=== PATIENT | male | born 1965 | race American Indian/Alaskan Native ===

== ENCOUNTER 2020-05-30 13:23 | Observation (INO) | payer MEDICAID, MEDICARE ==
--- NOTE | 2020-05-30 16:31 | Event Note ---
ED Screening Note Date of service: 05/30/20 Time: 16:27 ED Screening Note: 54-year-old male with end-stage renal disease on dialysis every day with recent diagnosis of atrial fibrillation recently prescribed mediation for A fib. Patient presents with dizziness for the past couple of days with fatigue and loss of appetite. Past medical history: Afib, ESRD, hypertension This initial assessment/diagnostic orders/clinical plan/treatment(s) is/are subject to change based on patients health status, clinical progression and re- assessment by fellow clinical providers in the ED. Further treatment and workup at subsequent clinical providers discretion. Patient/guardian urged not to elope from the ED as their condition may be serious if not clinically assessed and managed. Initial orders include: Labs, EKG,
--- NOTE | 2020-05-30 17:18 | XRay Report ---
CHEST 2 VIEWS INDICATION / CLINICAL INFORMATION: sob. COMPARISON: None available. FINDINGS: SUPPORT DEVICES: None. HEART / MEDIASTINUM: No significant abnormality. LUNGS / PLEURA: No significant pulmonary or pleural abnormality. No pneumothorax. ADDITIONAL FINDINGS: No significant additional findings. IMPRESSION: 1. No acute findings. Signer Name: Fausto Weathers MD Signed: 05/30/2020 5:14 PM Workstation Name: [id number]
[2020-05-30 18:28] LABS: Basophils # (Auto) 0.1 K/mm3 (0.0-0.1); Basophils % (Auto) 1.5 % (0.0-1.8); Eosinophils % (Auto) 0.8 % (0.0-4.3); Hemoglobin 9.5 gm/dl (11.8-15.2); Lymphocytes # (Auto) 1.3 K/mm3 (1.2-5.4); Lymphocytes % (Auto) 27.1 % (13.4-35.0); Mean Corpuscular HGB Conc 33 % (32-34); Mean Corpuscular Volume 103 fl (84-94); Monocytes # (Auto) 0.4 K/mm3 (0.0-0.8); Monocytes % (Auto) 8.1 % (0.0-7.3); Platelet Count 220 K/mm3 (140-440); Red Blood Count 2.82 M/mm3 (3.65-5.03)
[2020-05-30 18:43] LABS: Albumin 2.9 g/dL (3.9-5); Calcium 7.8 mg/dL (8.4-10.2)
[2020-05-30 18:54] LABS: Chol/HDL Ratio 1.73 %; HDL Cholesterol 78 mg/dL (40-59)
[2020-05-30 19:11] LABS: LDL Cholesterol,Direct TNR mg/dL (50-130)
[2020-05-30 19:39] LABS: Bilirubin,Urine NEG (Negative); Blood,Urine SM (Negative); Color,Urine Straw (Yellow); Urobilinogen,Urine < 2.0 mg/dL (<2.0)
--- NOTE | 2020-05-30 20:40 | Emergency Department Report ---
ED Dizziness HPI - General Chief Complaint: Dizziness Stated Complaint: DIZZY Time Seen by Provider: 05/30/20 18:13 Source: patient Mode of arrival: Ambulatory Limitations: No Limitations - History of Present Illness Initial Comments: Patient is a 54-year-old male that presents emergency room with complaints of dizziness. Patient states that this is been going on for 3 days. Patient states his dizziness is worse with standing and better with sitting and rest. Patient states that when he lies flat or states his symptoms completely resolved. Patient states that he is on dialysis. Patient states he does peritoneal dialysis daily. Patient states his last dialysis was yesterday. Patient states that after dialysis his dizziness is a little bit more prominent. Patient denies chest pain or shortness of breath. Patient denies fever and chills. Patient denies syncope. Patient denies dizziness. Patient denies visual changes. Patient only complains of lightheadedness and dizziness while going from the sitting to the standing position. Patient states 1 week ago he was seen at another hospital and had problems with new onset atrial flutter. Patient denies recent travel. Patient denies recent international travel. Patient denies exposure to the novel coronavirus. Patient denies sick contacts. Patient denies fever and chills. Patient denies cough. Patient denies diarrhea. Patient denies coming in contact with anybody with symptoms of the novel coronavirus. MD Complaint: dizziness -: Sudden Timing: sudden onset Description: lightheadedness History of Same: No History of Trauma: No Severity: moderate Improves With: rest Worsens With: position Associated Symptoms: denies: ataxia, chest pain, confusion, cough, diaphoresis, fever/chills, loss of appetite, malaise, rash, seizure, shortness of breath, syncope, weakness - Related Data Allergies Allergy/AdvReac Type Severity Reaction Status Date / Time No Known Allergies Allergy Verified 05/30/20 16:30 ED Review of Systems ROS: Stated complaint: DIZZY Other details as noted in HPI Comment: All other systems reviewed and negative Constitutional: denies: chills, fever Eyes: denies: eye pain, eye discharge, vision change ENT: denies: ear pain, throat pain Respiratory: denies: cough, shortness of breath, wheezing Cardiovascular: denies: chest pain, palpitations Endocrine: no symptoms reported Gastrointestinal: denies: abdominal pain, nausea, diarrhea Genitourinary: denies: urgency, dysuria Musculoskeletal: denies: back pain, joint swelling, arthralgia Skin: denies: rash, lesions Neurological: as per HPI. denies: headache, weakness, paresthesias Psychiatric: denies: anxiety, depression Hematological/Lymphatic: denies: easy bleeding, easy bruising ED Past Medical Hx - Past Medical History Previous Medical History?: Yes Hx Hypertension: Yes Hx Renal Disease: Yes (peritoneal dialysis) - Surgical History Past Surgical History?: No - Family History Family history: no significant - Social History Smoking Status: Never Smoker Substance Use Type: None ED Physical Exam - General Limitations: No Limitations General appearance: alert, in no apparent distress - Head Head exam: Present: atraumatic, normocephalic - Eye Eye exam: Present: normal appearance, PERRL Pupils: Present: normal accommodation - ENT ENT exam: Present: mucous membranes moist - Neck Neck exam: Present: normal inspection - Respiratory Respiratory exam: Present: normal lung sounds bilaterally. Absent: respiratory distress, wheezes, rales - Cardiovascular Cardiovascular Exam: Present: regular rate, normal rhythm. Absent: systolic murmur, diastolic murmur, rubs, gallop - GI/Abdominal GI/Abdominal exam: Present: soft, normal bowel sounds. Absent: distended, tenderness, guarding - Rectal Rectal exam: Present: deferred - Extremities Exam Extremities exam: Present: normal inspection - Back Exam Back exam: Present: normal inspection - Neurological Exam Neurological exam: Present: alert, oriented X3 - Psychiatric Psychiatric exam: Present: normal affect, normal mood - Skin Skin exam: Present: warm, dry, intact, normal color. Absent: rash ED Course Vital Signs 05/30/20 05/30/20 05/30/20 14:26 17:24 17:30 Temperature 98.7 F Pulse Rate 85 Respiratory 18 Rate Blood Pressure 176/99 Blood Pressure [Left] O2 Sat by Pulse 98 100 99 Oximetry 05/30/20 05/30/20 05/30/20 17:46 18:00 18:27 Temperature Pulse Rate 70 83 Respiratory 18 18 Rate Blood Pressure Blood Pressure 168/82 [Left] O2 Sat by Pulse 99 100 98 Oximetry 05/30/20 05/30/20 05/30/20 19:30 20:15 20:30 Temperature 98.9 F Pulse Rate 102 H 93 H 86 Respiratory 24 15 18 Rate Blood Pressure 159/96 159/96 Blood Pressure 153/91 [Left] O2 Sat by Pulse 100 97 99 Oximetry 05/30/20 05/30/20 05/30/20 21:15 21:30 22:00 Temperature Pulse Rate 92 H 89 72 Respiratory 15 15 13 Rate Blood Pressure 142/87 136/83 164/94 Blood Pressure [Left] O2 Sat by Pulse 96 98 96 Oximetry 05/30/20 05/30/20 05/30/20 22:15 22:30 23:30 Temperature Pulse Rate 91 H 91 H 91 H Respiratory 21 17 16 Rate Blood Pressure 159/98 136/83 151/94 Blood Pressure [Left] O2 Sat by Pulse 98 100 98 Oximetry 05/30/20 05/30/20 05/31/20 23:45 23:46 00:00 Temperature Pulse Rate 94 H 94 H 90 Respiratory 13 11 L 21 Rate Blood Pressure 147/88 147/88 147/89 Blood Pressure [Left] O2 Sat by Pulse 96 99 95 Oximetry 05/31/20 05/31/20 05/31/20 00:15 00:30 00:45 Temperature Pulse Rate 94 H 115 H 88 Respiratory 13 17 16 Rate Blood Pressure 146/93 146/93 154/96 Blood Pressure [Left] O2 Sat by Pulse 95 98 97 Oximetry - Reevaluation(s) Reevaluation #1: I discussed all results with patient. I discussed plan of care with patient. Patient agrees with plan of care and admission. Patient to be admitted to the hospitalist service. 05/30/20 22:30 - Consultations Consultation #1: Hospitalist consulted for admission. Hospitalist to admit patient. 05/30/20 22:35 ED Medical Decision Making - Lab Data Result diagrams: 05/30/20 18:01 05/30/20 18:01 - EKG Data -: EKG Interpreted by Me EKG shows normal: sinus rhythm, axis, intervals, QRS complexes, ST-T waves Rate: normal - Radiology Data Radiology results: report reviewed, image reviewed interpreted by me: Chest x-ray: No acute findings, no fracture, no pneumonia, no pneumothorax, lung evans clear. CHEST 2 VIEWS INDICATION / CLINICAL INFORMATION: sob. COMPARISON: None available. FINDINGS: SUPPORT DEVICES: None. HEART / MEDIASTINUM: No significant abnormality. LUNGS / PLEURA: No significant pulmonary or pleural abnormality. No pneumothorax. ADDITIONAL FINDINGS: No significant additional findings. IMPRESSION: 1. No acute findings. CT head/brain wo con INDICATION: Dizziness. TECHNIQUE: Routine CT head without contrast. All CT scans at this location are performed using CT dose reduction for ALARA by means of automated exposure control. COMPARISON: None. FINDINGS: BRAIN / INTRACRANIAL CONTENTS: No acute hemorrhage, mass effect, midline shift, or hydrocephalus. No appreciable acute large territorial or lacunar infarct. Small chronic lacunar infarct in the right lateral thalamus. ORBITS: No significant abnormality of visualized orbits. SINUSES / MASTOIDS: No significant abnormality of visualized sinuses and mastoid air cells. ADDITIONAL FINDINGS: None. IMPRESSION: 1. No acute intracranial abnormality - Medical Decision Making Patient is a 54-year-old male that presents emergency room with worsening dizziness. Patient's labs were all consistent with end-stage renal disease however I assessed the patient had elevated troponin and considered secondary to kidney disease but the patient's troponin stayed the same and actually went up a point. Patient admitted to the hospital service for further evaluation and treatment. Patient chest x-ray was negative. Patient head CT was negative. - Differential Diagnosis Dizziness, ACS, electrolyte imbalance, dehydration, Critical Care Time: Yes Critical care time in (mins) excluding proc time.: 35 Critical care attestation.: If time is entered above; I have spent that time in minutes in the direct care of this critically ill patient, excluding procedure time. Critical Care Time: 35 minutes ED Disposition Clinical Impression: Dizziness, ESRD (end stage renal disease), Elevated troponin Disposition: OP ADMIT IP TO THIS HOSP Is pt being admited?: Yes Does the pt Need Aspirin: No Condition: Critical Time of Disposition: 22:21
--- NOTE | 2020-05-30 21:57 | Cat Scan Report ---
CT head/brain wo con INDICATION: Dizziness. TECHNIQUE: Routine CT head without contrast. All CT scans at this location are performed using CT dos e reduction for ALARA by means of automated exposure control. COMPARISON: None. FINDINGS: BRAIN / INTRACRANIAL CONTENTS: No acute hemorrhage, mass effect, midline shift, or hydrocephalus. No appreciable acute large territorial or lacunar infarct. Small chronic lacunar infarct in the right la teral thalamus. ORBITS: No significant abnormality of visualized orbits. SINUSES / MASTOIDS: No significant abnormality of visualized sinuses and mastoid air cells. ADDITIONAL FINDINGS: None. IMPRESSION: 1. No acute intracranial abnormality. Signer Name: Zachary Segura MD Signed: 05/30/2020 9:53 PM Workstation Name: [id number]
[2020-05-30] MEDS ORDERED: NITROGLYCERIN 0.4 MG TAB SUBL SL PRN (23:55)
[2020-05-30] MEDS ORDERED: ONDANSETRON 4 MG/2 ML INJ IV PRN (23:55)
[2020-05-30] MEDS ORDERED: hydrALAZINE 20 MG/1 ML INJ IV PRN (23:55)
[2020-05-30] MEDS ORDERED: MAGNESIUM HYDROXIDE (MOM) ORAL LIQD UDC PO PRN (23:55)
[2020-05-30] MEDS ORDERED: MORPHINE 2 MG/1 ML INJ IV PRN (23:55)
--- NOTE | 2020-05-31 00:17 | History and Physical Report ---
History of Present Illness Date of examination: 05/30/20 Date of admission: 05/30/20 23:20 Chief complaint: Dizziness History of present illness: Patient is a 54-year-old male with known history of hypertension and end-stage renal disease on peritoneal dialysis. Presents to the emergency room today with a complaint of dizziness which has been ongoing for the past 3 days. Dizziness is said to be worse on standing and improves upon sitting and resting. Dizzines s is said to be worse after having his dialysis. Patient is on peritoneal dialysis daily. He denies any chest pain or shortness of breath, he denies any fever or chills, he denies any syncopal episode, he denies any headache. Patient denies any recent travel and no sick contacts, denies any contact with anyone with COVID-19. Patient also indicates that he was seen at a hospital in [facility] for atrial flutter. He states he was placed on observation overnight. Work-up in the emergency room today shows a slightly elevated troponin however the EKG and chest x-ray were within normal limits. Past History Past Medical History: ESRD, hypertension Past Surgical History: Other (Peritoneal catheter placement) Social history: no significant social history Family history: no significant family history Medications and Allergies Allergies Allergy/AdvReac Type Severity Reaction Status Date / Time No Known Allergies Allergy Verified 05/30/20 16:30 Active Meds: Active Medications Acetaminophen (Tylenol) 650 mg PO Q4H PRN PRN Reason: Pain MILD(1-3)/Fever >100.5/GARCIA Aspirin (Ecotrin) 325 mg PO QDAY GISELLE Heparin Sodium (Porcine) (Heparin) 5,000 unit SUB-Q Q8HR GISELLE Hydralazine HCl (Apresoline) 10 mg IV Q6HR PRN PRN Reason: FOR SBP > target Magnesium Hydroxide (Milk Of Magnesia) 30 ml PO Q4H PRN PRN Reason: Constipation Morphine Sulfate (Morphine) 2 mg IV Q4H PRN PRN Reason: Pain, Moderate (4-6) Nitroglycerin (Nitrostat) 0.4 mg SL Q5M PRN PRN Reason: Chest Pain Ondansetron HCl (Zofran) 4 mg IV Q8H PRN PRN Reason: Nausea And Vomiting Sodium Chloride (Sodium Chloride Flush Syringe 10 Ml) 10 ml IV BID GISELLE Sodium Chloride (Sodium Chloride Flush Syringe 10 Ml) 10 ml IV PRN PRN PRN Reason: LINE FLUSH Sodium Chloride (Sodium Chloride Flush Syringe 10 Ml) 10 ml IV PRN PRN PRN Reason: LINE FLUSH Review of Systems Constitutional: no fever, no chills Ears, nose, mouth and throat: no nasal congestion, no sore throat Cardiovascular: no chest pain, no palpitations Respiratory: no cough, no shortness of breath Gastrointestinal: no abdominal pain, no nausea, no vomiting, no diarrhea Genitourinary Male: no dysuria, no hematuria, no flank pain Musculoskeletal: no neck pain, no low back pain Integumentary: no rash, no pruritis Neurological: other (Dizziness), no headaches, no confusion Psychiatric: no anxiety, no depression Exam - Constitutional Vitals: Temp Pulse Resp BP Pulse Ox 98.9 F 94 H 13 147/88 96 05/30/20 19:30 05/30/20 23:45 05/30/20 23:45 05/30/20 23:45 05/30/20 23:45 General appearance: Present: no acute distress, well-nourished - EENT Eyes: Present: PERRL, EOM intact. Absent: scleral icterus ENT: hearing intact, clear oral mucosa, dentition normal - Neck Neck: Present: supple, normal ROM - Respiratory Respiratory effort: normal Respiratory: bilateral: CTA - Cardiovascular Rhythm: regular Heart Sounds: Present: S1 & S2. Absent: gallop, systolic murmur, diastolic murmur, rub - Extremities Extremities: no ischemia, pulses intact, pulses symmetrical, No edema, Full ROM Peripheral Pulses: within normal limits - Abdominal General gastrointestinal: Present: soft, non-tender, non-distended, normal bowel sounds, other (peritoneal dialysis catheter in place.). Absent: mass - Integumentary Integumentary: Present: clear, warm, dry. Absent: rash - Musculoskeletal Musculoskeletal: strength equal bilaterally - Psychiatric Psychiatric: appropriate mood/affect, intact judgment & insight, memory intact, cooperative - Neurologic Neurologic: CNII-XII intact, no focal deficits, moves all extremities HEART Score - HEART Score Troponin: Troponin T 0.039 ng/mL (0.00-0.029) H 05/30/20 20:44 Results - Labs CBC & Chem 7: 05/31/20 04:43 05/31/20 04:43 Labs: Abnormal lab results 05/30/20 05/30/20 05/30/20 Range/Units 18:01 18:01 18:01 RBC 2.82 L (3.65-5.03) M/mm3 Hgb 9.5 L (11.8-15.2) gm/dl Hct 29.0 L (35.5-45.6) % MCV 103 H (84-94) fl MCH 34 H (28-32) pg RDW 19.0 H (13.2-15.2) % [place] % (Auto) 8.1 H (0.0-7.3) % Carbon Dioxide 21 L (22-30) mmol/L BUN 28 H (9-20) mg/dL Creatinine 5.3 H (0.8-1.3) mg/dL Glucose 123 H (75-100) mg/dL Calcium 7.8 L (8.4-10.2) mg/dL Magnesium 1.20 L (1.7-2.3) mg/dL AST 120 H (5-40) units/L Alkaline Phosphatase 195 H (35-129) units/L Troponin T 0.038 H (0.00-0.029) ng/mL Total Protein 5.8 L (6.3-8.2) g/dL Albumin 2.9 L (3.9-5) g/dL Triglycerides 1392 H (2-149) mg/dL HDL Cholesterol 78 H (40-59) mg/dL 05/30/20 Range/Units 20:44 RBC (3.65-5.03) M/mm3 Hgb (11.8-15.2) gm/dl Hct (35.5-45.6) % MCV (84-94) fl MCH (28-32) pg RDW (13.2-15.2) % [place] % (Auto) (0.0-7.3) % Carbon Dioxide (22-30) mmol/L BUN (9-20) mg/dL Creatinine (0.8-1.3) mg/dL Glucose (75-100) mg/dL Calcium (8.4-10.2) mg/dL Magnesium (1.7-2.3) mg/dL AST (5-40) units/L Alkaline Phosphatase (35-129) units/L Troponin T 0.039 H (0.00-0.029) ng/mL Total Protein (6.3-8.2) g/dL Albumin (3.9-5) g/dL Triglycerides (2-149) mg/dL HDL Cholesterol (40-59) mg/dL Assessment and Plan - Patient Problems (1) Dizziness Current Visit: Yes Status: Acute Plan to address problem: Etiology is unclear. Patient admitted and placed on telemetry. We will check orthostatic vital signs. We will also schedule patient for echo cardiogram and carotid Doppler. (2) ESRD (end stage renal disease) Current Visit: Yes Status: Acute Plan to address problem: Patient is on peritoneal dialysis daily. We will place consult to nephrology for evaluation. (3) Elevated troponin Current Visit: Yes Status: Acute Plan to address problem: Possibly secondary to the history of end-stage renal disease. We will however monitor EKG and trend serial troponin. Patient has denied any chest pain. We will request cardiology input. (4) DVT prophylaxis Current Visit: Yes Status: Acute Plan to address problem: Patient placed on subcutaneous heparin. (5) Full code status Current Visit: Yes Status: Acute
[2020-05-31 05:13] LABS: Basophils # (Auto) 0.1 K/mm3 (0.0-0.1); Calcium 7.8 mg/dL (8.4-10.2); Eosinophils # (Auto) 0.1 K/mm3 (0.0-0.4); Eosinophils % (Auto) 1.1 % (0.0-4.3); Hematocrit 28.6 % (35.5-45.6); Hemoglobin 9.3 gm/dl (11.8-15.2); Lymphocytes # (Auto) 1.3 K/mm3 (1.2-5.4); Mean Corpuscular HGB Conc 33 % (32-34); Mean Corpuscular Volume 102 fl (84-94); Monocytes # (Auto) 0.7 K/mm3 (0.0-0.8); Platelet Count 215 K/mm3 (140-440); Red Blood Count 2.79 M/mm3 (3.65-5.03); Red Cell Distribution Width 19.5 % (13.2-15.2)
[2020-05-31 05:19] LABS: INR 1.18 (0.87-1.13)
[2020-05-31] MEDS: HEPARIN 5,000 UNIT/1 ML VIAL SUB-Q SCH ×3 (05:49→21:28)
[2020-05-31] MEDS ORDERED: REGADENOSON 0.4 MG/5 ML INJ IV ONE ×2 (09:38→09:43)
[2020-05-31] MEDS ORDERED: ASPIRIN EC 325 MG TAB PO SCH (10:00)
--- NOTE | 2020-05-31 12:35 | Vascular Lab Report ---
. BILATERAL CAROTID DOPPLER ULTRASOUND INDICATION : DIZZINESS TECHNIQUE: Grayscale and color Doppler imaging performed through the neck. COMPARISON: None FINDINGS: Right: There is minimal calcific plaque in the carotid bulb. Peak systolic velocity in the CCA is 7 8 cm/s with end-diastolic velocity of 18 cm/s. Peak systolic velocity in the proximal ICA is 107 cm/s with end-diastolic velocity of 39 cm/s. ICA to CCA ratio is less than 2. There is antegrade flow in the ECA and the vertebral artery. Left: There is minimal calcific plaque in the carotid bulb. Peak systolic velocity in the CCA is 58 c m/s with end-diastolic velocity of 17 cm/s. Peak systolic velocity in the proximal ICA is 69 cm/s wit h end-diastolic velocity of 32 cm/s. ICA to CCA ratio is less than 2. There is antegrade flow in the ECA and the vertebral artery. IMPRESSION: No hemodynamically significant stenosis by NASCET criteria. Doppler velocities indicate l ess than 50% luminal narrowing bilaterally. Signer Name: Dwayne Quarles Jr, MD Signed: 05/31/2020 12:30 PM Workstation Name: [id number]
--- NOTE | 2020-05-31 12:52 | Consultation ---
History of Present Illness Consult date: 05/31/20 Consult reason: elevated troponin History of present illness: The patient is a 54-year-old man with end-stage renal disease on peritoneal dialysis. He was brought to the hospital for complaints of dizziness, and in the emergency room laboratory values showed a creatinine of 5.3 and a troponin level that was 0.3, unchanged on serial measurements. The patient had no chest pain, and no symptoms of acute coronary ischemia. He had no palpitations associated with his dizziness. He has no prior records available in the hospital system. Cardiology consultation was requested for cardiac assessment and management. In the records in the triage, there was a reported history of atrial flutter managed at another hospital, but we do not have those records for my review, and there is no record of patient being on oral anticoagulation. He is a poor historian. ECG here is normal sinus rhythm, no ischemic changes. Chest x-ray revealed a normal size cardiac silhouette and clear lungs, normal chest x-ray. No dysrhythmias have been documented while patient has been on telemetry. Today, he underwent a Lexiscan thallium stress test ordered by the medical service, the results are pending. The most significant finding on his laboratory exam is severe hypertriglyceridemia, with a triglyceride level of 1,392. The total cholesterol is reported at only 135. These numbers are confusing, suggesting a negative value for LDL. Past History Past Medical History: ESRD, hypertension Past Surgical History: Other (Peritoneal catheter placement) Social history: no significant social history Family history: no significant family history Medications and Allergies Allergies Allergy/AdvReac Type Severity Reaction Status Date / Time No Known Allergies Allergy Verified 05/30/20 16:30 Active Meds: Active Medications Acetaminophen (Tylenol) 650 mg PO Q4H PRN PRN Reason: Pain MILD(1-3)/Fever >100.5/GARCIA Aspirin (Halfprin Ec) 81 mg PO QHS GISELLE Gemfibrozil (Lopid) 600 mg PO BID GISELLE Heparin Sodium (Porcine) (Heparin) 5,000 unit SUB-Q Q8HR GISELLE Last Admin: 05/31/20 05:49 Dose: 5,000 unit Documented by: Labetalol HCl (Labetalol) 10 mg IV Q6H PRN PRN Reason: HYPERTENSION Magnesium Hydroxide (Milk Of Magnesia) 30 ml PO Q4H PRN PRN Reason: Constipation Morphine Sulfate (Morphine) 2 mg IV Q4H PRN PRN Reason: Pain, Moderate (4-6) Niacin (Niaspan Er) 1,000 mg PO QHS [facility] Nitroglycerin (Nitrostat) 0.4 mg SL Q5M PRN PRN Reason: Chest Pain Ondansetron HCl (Zofran) 4 mg IV Q8H PRN PRN Reason: Nausea And Vomiting Sodium Chloride (Sodium Chloride Flush Syringe 10 Ml) 10 ml IV BID [facility] Last Admin: 05/31/20 10:00 Dose: Not Given Documented by: Sodium Chloride (Sodium Chloride Flush Syringe 10 Ml) 10 ml IV PRN PRN PRN Reason: LINE FLUSH Sodium Chloride (Sodium Chloride Flush Syringe 10 Ml) 10 ml IV PRN PRN PRN Reason: LINE FLUSH Review of Systems Cardiovascular: no chest pain, no orthopnea, no palpitations, no rapid/irregular heart beat, no edema, no syncope, no lightheadedness, no shortness of breath Physical Examination Vital Signs Temp Pulse Resp BP Pulse Ox 98.7 F 85 18 176/99 98 05/30/20 14:26 05/30/20 14:26 05/30/20 14:26 05/30/20 14:26 05/30/20 14:26 General appearance: no acute distress HEENT: Positive: PERRL Neck: Positive: neck supple Cardiac: Positive: Reg Rate and Rhythm Lungs: Positive: clear to auscultation Neuro: Positive: Grossly Intact Abdomen: Positive: Soft Male genitourinary: Positive: deferred Skin: Positive: Clear Extremities: Absent: edema Results 05/31/20 04:43 05/31/20 04:43 Cardiac Enzymes 05/30/20 Range/Units 18:01 AST 120 H (5-40) units/L Coagulation 05/31/20 Range/Units 04:43 PT 15.3 H (12.2-14.9) Sec. INR 1.18 H (0.87-1.13) Lipids 05/30/20 Range/Units 18:01 Triglycerides 1392 H (2-149) mg/dL Cholesterol 135 (50-199) mg/dL HDL Cholesterol 78 H (40-59) mg/dL Cholesterol/HDL Ratio 1.73 % CBC 05/30/20 05/31/20 Range/Units 18:01 04:43 WBC 4.7 5.2 (4.5-11.0) K/mm3 RBC 2.82 L 2.79 L (3.65-5.03) M/mm3 Hgb 9.5 L 9.3 L (11.8-15.2) gm/dl Hct 29.0 L 28.6 L (35.5-45.6) % Plt Count 220 215 (140-440) K/mm3 Lymph # 1.3 1.3 (1.2-5.4) K/mm3 [place] # 0.4 0.7 (0.0-0.8) K/mm3 Eos # 0.0 0.1 (0.0-0.4) K/mm3 Baso # 0.1 0.1 (0.0-0.1) K/mm3 Comprehensive Metabolic Panel 05/30/20 05/31/20 Range/Units 18:01 04:43 Sodium 141 142 (137-145) mmol/L Potassium 4.6 4.2 (3.6-5.0) mmol/L Chloride 104.3 107.1 H (98-107) mmol/L Carbon Dioxide 21 L 23 (22-30) mmol/L BUN 28 H 29 H (9-20) mg/dL Creatinine 5.3 H 5.5 H (0.8-1.3) mg/dL Glucose 123 H 118 H (75-100) mg/dL Calcium 7.8 L 7.8 L (8.4-10.2) mg/dL AST 120 H (5-40) units/L ALT 38 (7-56) units/L Alkaline Phosphatase 195 H (35-129) units/L Total Protein 5.8 L (6.3-8.2) g/dL Albumin 2.9 L (3.9-5) g/dL EKG interpretations - Telemetry EKG Rhythm: Sinus Rhythm Assessment and Plan - Patient Problems (1) Hypertriglyceridemia Current Visit: Yes Status: Acute Plan to address problem: Severe hypertriglyceridemia, with triglyceride level of 1,392. Will be prudent to repeat these numbers in the setting of very low reported total cholesterol. I will initiate therapy with niacin. Further cardiac management will depend on clinical course. (2) Dizziness Current Visit: Yes Status: Acute Plan to address problem: Presenting complaint of dizziness, of uncertain etiology. Serial ECGs are normal. There is a nonspecific borderline troponin elevation likely due to poor renal clearance. Lexiscan thallium stress test and echocardiogram are pending. We will request records from the patient's prior hospital evaluation, to obtain details of any prior history of atrial tachyarrhythmias.
[2020-05-31] MEDS ORDERED: GEMFIBROZIL 600 MG TAB PO SCH (13:00)
--- NOTE | 2020-05-31 13:04 | Consultation ---
History of Present Illness - Reason for Consult Consult date: 05/31/20 end stage renal disease - History of Present Illness Mr. Watson is a 54yo with ESRD on peritoneal dialysis followed by Dr. Young in [place] who presented to the ED with dizziness. He reports recent ED visit/hospitalization for HR in 140s at dialysis clinic. Per records, patient was dx with atiral flutter at that time He reports dizziness began appx 3 days ago and progressively worsened. He denies chest pain, SOB, nausea and vomiting. He states that he has been using 1.5% dextrose PD fluid as his SBP has ranged in the 110s. . He reports recent hx of catheter related peritonitis and completed abx treatment appx 1 week ago. He denies abd pain, cloudy PD fluid. Past History Past Medical History: ESRD, hypertension Past Surgical History: Other (Peritoneal catheter placement) Social history: no significant social history Family history: no significant family history Medications and Allergies Allergies Allergy/AdvReac Type Severity Reaction Status Date / Time No Known Allergies Allergy Verified 05/30/20 16:30 Active Meds: Active Medications Acetaminophen (Tylenol) 650 mg PO Q4H PRN PRN Reason: Pain MILD(1-3)/Fever >100.5/GARCIA Aspirin (Halfprin Ec) 81 mg PO QHS [facility] Heparin Sodium (Porcine) (Heparin) 5,000 unit SUB-Q Q8HR [facility] Last Admin: 05/31/20 05:49 Dose: 5,000 unit Documented by: Labetalol HCl (Labetalol) 10 mg IV Q6H PRN PRN Reason: HYPERTENSION Magnesium Hydroxide (Milk Of Magnesia) 30 ml PO Q4H PRN PRN Reason: Constipation Morphine Sulfate (Morphine) 2 mg IV Q4H PRN PRN Reason: Pain, Moderate (4-6) Niacin (Niaspan Er) 1,000 mg PO QHS [facility] Nitroglycerin (Nitrostat) 0.4 mg SL Q5M PRN PRN Reason: Chest Pain Ondansetron HCl (Zofran) 4 mg IV Q8H PRN PRN Reason: Nausea And Vomiting Sodium Chloride (Sodium Chloride Flush Syringe 10 Ml) 10 ml IV BID [facility] Last Admin: 05/31/20 10:00 Dose: Not Given Documented by: Sodium Chloride (Sodium Chloride Flush Syringe 10 Ml) 10 ml IV PRN PRN PRN Reason: LINE FLUSH Sodium Chloride (Sodium Chloride Flush Syringe 10 Ml) 10 ml IV PRN PRN PRN Reason: LINE FLUSH Review of Systems All systems: negative Exam - Vital Signs Vital signs: Vital Signs Temp Pulse Resp BP Pulse Ox 98.7 F 85 18 176/99 98 05/30/20 14:26 05/30/20 14:26 05/30/20 14:26 05/30/20 14:26 05/30/20 14:26 - General Appearance General appearance: well-developed, well-nourished EENT: ATNC Neck: Present: neck supple. Absent: JVD/HJR, Masses Heart: regular, normal heart rate, S1S2 Gastrointestinal: Present: normal. Absent: tenderness, distended Integumentary: no rash, warm and dry Neurologic: alert and oriented x3 Musculoskeletal: Present: other (no edema) Psychiatric: cooperative Results - Lab Results 05/31/20 04:43 05/31/20 04:43 Most recent lab results Calcium 7.8 mg/dL (8.4-10.2) L 05/31/20 04:43 Magnesium 1.20 mg/dL (1.7-2.3) L 05/30/20 18:01 Assessment and Plan Impression: * End stage renal disease on peritoneal dialysis * Hx of catheter associated peritonitis * Anemia secondary to ESRD * Secondary hyperparathryoidism Plan: * Start CAPD - 1.5% dextrose, fill volume 2L, dwell time 4hours, 4 exchanges per day * Cardiology work up in progress * Will obtain PD cell count, culture * Renal diet * Dose medications for renal function * Epogen TIW prn
--- NOTE | 2020-05-31 13:49 | Progress Note ---
Assessment and Plan - Patient Problems (1) Vertigo Current Visit: Yes Status: Acute Plan to address problem: - Antivert TID - Supportive care - He states he was given antivert in the past for vertigo (2) Elevated troponin Current Visit: Yes Status: Acute Plan to address problem: - 05/31 Bilateral Carotid Doppler: No hemodynamically significant stenosis by NASCET criteria. Doppler velocities indicate less than 50% luminal narrowing bi laterally. - 05/31 Echocardiogram pending - Serial troponins elevated but patient is ESRD - Obtain orthostatic vital signs (3) Hypertriglyceridemia Current Visit: Yes Status: Acute Plan to address problem: - Niacin started by cardiology - 05/30: triglyceride 1392 (4) ESRD (end stage renal disease) Current Visit: Yes Status: Acute Plan to address problem: - PD patient - Nephrology consulted - Daily weight - Avoid nephrotoxic medications (5) DVT prophylaxis Current Visit: Yes Status: Acute Plan to address problem: - Heaprin subq - SCDs while in bed History Interval history: This is 54 year old make with HTN and ESRD on PD presented to the ED with dizzin ess. He reports recent ED visit and hospitalization for HR in 140s at dialysis clinic and patient was dx with ilia charles at that time. He reports dizziness began about 3 days ago and progressively worsened. He had a lexiscan this morning. He is concerned about continuation of his PD however Nephrology has been consulted. Hospitalist Physical - Constitutional Vitals: Temp Pulse Resp BP Pulse Ox 99.3 F 96 H 20 151/99 100 05/31/20 07:51 05/31/20 13:06 05/31/20 07:51 05/31/20 09:44 05/31/20 07:51 General appearance: Present: no acute distress - EENT Eyes: Present: PERRL ENT: hearing intact - Neck Neck: Present: supple - Respiratory Respiratory effort: normal Respiratory: bilateral: CTA - Cardiovascular Rhythm: regular Heart Sounds: Present: S1 & S2. Absent: systolic murmur, diastolic murmur - Extremities Extremities: no ischemia, pulses intact, pulses symmetrical, No edema, normal temperature, normal color, Full ROM Peripheral Pulses: within normal limits - Abdominal General gastrointestinal: soft, non-tender, non-distended, other (PD catheter) - Integumentary Integumentary: Present: clear, warm, dry - Psychiatric Psychiatric: appropriate mood/affect, cooperative - Neurologic Neurologic: CNII-XII intact, no focal deficits, moves all extremities - Allied Health Allied health notes reviewed: nursing HEART Score - HEART Score Troponin: Troponin T 0.038 ng/mL (0.00-0.029) H 05/31/20 06:24 Results - Labs CBC & Chem 7: 05/31/20 04:43 05/31/20 04:43 Labs: Laboratory Last Values WBC 5.2 K/mm3 (4.5-11.0) 05/31/20 04:43 RBC 2.79 M/mm3 (3.65-5.03) L 05/31/20 04:43 Hgb 9.3 gm/dl (11.8-15.2) L 05/31/20 04:43 Hct 28.6 % (35.5-45.6) L 05/31/20 04:43 MCV 102 fl (84-94) H 05/31/20 04:43 MCH 33 pg (28-32) H 05/31/20 04:43 MCHC 33 % (32-34) 05/31/20 04:43 RDW 19.5 % (13.2-15.2) H 05/31/20 04:43 Plt Count 215 K/mm3 (140-440) 05/31/20 04:43 Lymph % (Auto) 24.0 % (13.4-35.0) 05/31/20 04:43 Bartholomew % (Auto) 13.0 % (0.0-7.3) H 05/31/20 04:43 Eos % (Auto) 1.1 % (0.0-4.3) 05/31/20 04:43 Baso % (Auto) 1.0 % (0.0-1.8) 05/31/20 04:43 Lymph # 1.3 K/mm3 (1.2-5.4) 05/31/20 04:43 Bartholomew # 0.7 K/mm3 (0.0-0.8) 05/31/20 04:43 Eos # 0.1 K/mm3 (0.0-0.4) 05/31/20 04:43 Baso # 0.1 K/mm3 (0.0-0.1) 05/31/20 04:43 Seg Neutrophils % 60.9 % (40.0-70.0) 05/31/20 04:43 Seg Neutrophils # 3.2 K/mm3 (1.8-7.7) 05/31/20 04:43 PT 15.3 Sec. (12.2-14.9) H 05/31/20 04:43 INR 1.18 (0.87-1.13) H 05/31/20 04:43 Sodium 142 mmol/L (137-145) 05/31/20 04:43 Potassium 4.2 mmol/L (3.6-5.0) 05/31/20 04:43 Chloride 107.1 mmol/L (98-107) H 05/31/20 04:43 Carbon Dioxide 23 mmol/L (22-30) 05/31/20 04:43 Anion Gap 16 mmol/L 05/31/20 04:43 BUN 29 mg/dL (9-20) H 05/31/20 04:43 Creatinine 5.5 mg/dL (0.8-1.3) H 05/31/20 04:43 Estimated GFR 13 ml/min 05/31/20 04:43 BUN/Creatinine Ratio 5 % 05/31/20 04:43 Glucose 118 mg/dL (75-100) H 05/31/20 04:43 Calcium 7.8 mg/dL (8.4-10.2) L 05/31/20 04:43 Magnesium 1.20 mg/dL (1.7-2.3) L 05/30/20 18:01 Total Bilirubin 0.70 mg/dL (0.1-1.2) 05/30/20 18:01 AST 120 units/L (5-40) H 05/30/20 18:01 ALT 38 units/L (7-56) 05/30/20 18:01 Alkaline Phosphatase 195 units/L (35-129) H 05/30/20 18:01 Total Creatine Kinase 102 units/L (55-170) 05/30/20 18:01 Troponin T 0.038 ng/mL (0.00-0.029) H 05/31/20 06:24 Total Protein 5.8 g/dL (6.3-8.2) L 05/30/20 18:01 Albumin 2.9 g/dL (3.9-5) L 05/30/20 18:01 Albumin/Globulin Ratio 1.0 % 05/30/20 18:01 Triglycerides 1392 mg/dL (2-149) H 05/30/20 18:01 Cholesterol 135 mg/dL (50-199) 05/30/20 18:01 LDL Cholesterol Direct TNR 05/30/20 18:01 HDL Cholesterol 78 mg/dL (40-59) H 05/30/20 18:01 Cholesterol/HDL Ratio 1.73 % 05/30/20 18:01 Urine Color Straw (Yellow) 05/30/20 Unknown Urine Turbidity Clear (Clear) 05/30/20 Unknown Urine pH 7.0 (5.0-7.0) 05/30/20 Unknown Ur Specific [place] 1.010 (1.003-1.030) 05/30/20 Unknown Urine Protein 100 mg/dl mg/dL (Negative) 05/30/20 Unknown Urine Glucose (UA) Neg mg/dL (Negative) 05/30/20 Unknown Urine Ketones Neg mg/dL (Negative) 05/30/20 Unknown Urine Blood Sm (Negative) 05/30/20 Unknown Urine Nitrite Neg (Negative) 05/30/20 Unknown Urine Bilirubin Neg (Negative) 05/30/20 Unknown Urine Urobilinogen < 2.0 mg/dL (<2.0) 05/30/20 Unknown Ur Leukocyte Esterase Neg (Negative) 05/30/20 Unknown Urine WBC (Auto) 1.0 /HPF (0.0-6.0) 05/30/20 Unknown Urine RBC (Auto) 2.0 /HPF (0.0-6.0) 05/30/20 Unknown Hernández/IV: Voiding Method Toilet IV Catheter Type [Right Wrist] INT / Saline Lock Active Medications - Current Medications Current Medications: Generic Name Dose Route Start Last Admin Trade Name Freq PRN Reason Stop Dose Admin Acetaminophen 650 mg 05/30/20 23:55 Tylenol PO Q4H PRN Pain MILD(1-3)/Fever >100.5/GARCIA Aspirin 81 mg 05/31/20 22:00 Halfprin Ec PO QHS [facility] Heparin Sodium (Porcine) 5,000 unit 05/31/20 06:00 05/31/20 05:49 Heparin SUB-Q 5,000 unit Q8HR GISELLE Administration Labetalol HCl 10 mg 05/31/20 00:14 Labetalol IV Q6H PRN HYPERTENSION Magnesium Hydroxide 30 ml 05/30/20 23:55 Milk Of Magnesia PO Q4H PRN Constipation Morphine Sulfate 2 mg 05/30/20 23:55 Morphine IV Q4H PRN Pain, Moderate (4-6) Niacin 1,000 mg 05/31/20 22:00 Niaspan Er PO QHS GISELLE Nitroglycerin 0.4 mg 05/30/20 23:55 Nitrostat SL Q5M PRN Chest Pain Ondansetron HCl 4 mg 05/30/20 23:55 Zofran IV Q8H PRN Nausea And Vomiting Peritoneal Dialysis Solution 2,000 ml 05/31/20 14:00 Dianeal Pd-2 W/1.5% Dextrose IP QID GISELLE Sodium Chloride 10 ml 05/31/20 10:00 05/31/20 10:00 Sodium Chloride Flush Syringe 10 Ml IV Not Given BID GISELLE Sodium Chloride 10 ml 05/30/20 23:55 Sodium Chloride Flush Syringe 10 Ml IV PRN PRN LINE FLUSH Sodium Chloride 10 ml 05/30/20 23:55 Sodium Chloride Flush Syringe 10 Ml IV PRN PRN LINE FLUSH
--- NOTE | 2020-05-31 14:54 | Treadmill Report ---
THALLIUM STRESS TEST REPORT LEFT VENTRICLE: Left ventricular chamber size is within normal spread. Perfusion study demonstrates mild diaphragmatic attenuation artifact, otherwise homogeneous uptake of the tracer in all segments, no significant defects identified. Gated analysis demonstrates normal left ventricular systolic function, ejection fraction 58%. CONCLUSION: Normal myocardial perfusion study. JOB# [id number] CA/NTS
[2020-05-31] MEDS: ACETAMINOPHEN 325 MG TAB PO PRN ×2 (15:45→21:27)
[2020-05-31] MEDS: MECLIZINE 25 MG TAB PO PRN (15:53)
[2020-05-31] MEDS: DIALYSATE PD2 1.5% SOLN 2000 ML IP SCH ×3 (17:08→21:14)
[2020-05-31] MEDS ORDERED: ASPIRIN EC 81 MG TAB PO SCH (22:00)
[2020-05-31] MEDS ORDERED: NIACIN ER 500 MG TAB PO SCH (22:00)
[2020-05-31 22:49] LABS: Total Cells Counted 100 /mm3
[2020-06-01] MEDS: HEPARIN 5,000 UNIT/1 ML VIAL SUB-Q SCH ×2 (04:46→05:05)
[2020-06-01] MEDS: ACETAMINOPHEN 325 MG TAB PO PRN ×3 (04:46→11:35)
[2020-06-01 06:45] LABS: Calcium 7.3 mg/dL (8.4-10.2)
--- NOTE | 2020-06-01 07:43 | Discharge Summary ---
Providers - Providers Date of Admission: 05/30/20 23:20 Date of discharge: 06/01/20 Attending physician: PRANEETH TIDWELL 05/30/20 Consult to Cardiac Rehabilitation [CONS] Routine Reason For Exam: Phase I 05/30/20 23:56 Consult to Cardiology [CONS] Routine Consulting Provider: RENE CORRAL Reason For Exam: ELEVATED TROPONIN, DIZZINESS 05/31/20 00:08 Consult to Physician [CONS] Routine Comment: Consulting Provider: MARY WILDER Physician Instructions: Reason For Exam: ESRD ON PERITONEAL DIALYSIS Primary care physician: PUSH BENCH OPERATOR HELPER Hospitalization Reason for admission: dizziness Condition: Critical Hospital course: 54-year-old male with a history of ESRD on peritoneal dialysis and atrial flutter who presented through the emergency room with complaints of dizziness that began 3 days prior to admission. Patient stated that his symptoms progressively worsened which prompted his visit to the emergency room. On admission, patient was noted to have hypertriglyceridemia with a triglyceride level of 1392 and elevated troponin. Patient had no complaints of chest pain. Cardiology was consulted for elevated troponin and thus underwent stress test which was found to be negative for ischemia. Echocardiogram revealed mild concentric left ventricular hypertrophy with an EF of 55 to 60%. Carotid Doppler revealed no hemodynamic significant stenosis. Patient did report a history of vertigo in the past and describes his symptoms as consistent with that feeling. Nephrology also saw the patient for his peritoneal dialysis. Patient otherwise stabilized and is felt to receive maximal hospital benefit for discharge. Patient will be discharged home with Antivert. Indicated discharge time 35 minutes Disposition: [id number] TO HOME OR SELFCARE Time spent for discharge: 35 - Discharge Diagnoses (1) Dizziness Status: Acute (2) ESRD (end stage renal disease) Status: Acute (3) Elevated troponin Status: Acute (4) Hypertriglyceridemia Status: Acute (5) Vertigo Status: Acute Core Measure Documentation - Palliative Care Palliative Care/ Comfort Measures: Not Applicable - Core Measures Any of the following diagnoses?: none Exam - Constitutional Vitals: Temp Pulse Resp BP Pulse Ox 98.9 F 101 H 18 171/107 99 06/01/20 04:23 06/01/20 04:23 06/01/20 04:23 06/01/20 04:23 06/01/20 04:23 General appearance: Present: no acute distress, well-nourished - EENT Eyes: Present: PERRL ENT: hearing intact, clear oral mucosa - Neck Neck: Present: supple, normal ROM - Respiratory Respiratory effort: normal Respiratory: bilateral: CTA - Cardiovascular Heart Sounds: Present: S1 & S2. Absent: rub, click - Extremities Extremities: pulses symmetrical, No edema Peripheral Pulses: within normal limits - Abdominal General gastrointestinal: Present: soft, non-tender, non-distended, normal bowel sounds Male genitourinary: Present: normal - Integumentary Integumentary: Present: clear, warm, dry - Musculoskeletal Musculoskeletal: gait normal, strength equal bilaterally - Psychiatric Psychiatric: appropriate mood/affect, intact judgment & insight - Neurologic Neurologic: CNII-XII intact, moves all extremities Plan Activity: advance as tolerated Weight Bearing Status: Weight Bear as Tolerated Diet: renal Follow up with: PRIMARY CARE, [Primary Care Provider] - 7 Days Prescriptions: amLODIPine 10 mg PO DAILY #30 Meclizine [Antivert] 25 mg PO Q8H PRN #30 tablet PRN Reason: Vertigo Amiodarone [Cordarone 200 MG TAB] 200 mg PO BID #60 carvediloL [Coreg] 25 mg PO BID #60 Losartan [Cozaar] 25 mg PO QDAY #60 Apixaban [Eliquis] 5 mg PO BID #60 Folic Acid [Folvite] 1 mg PO QDAY #30 calcitrioL [Rocaltrol] 0.25 mcg PO DAILY #30 cap allopurinoL [Zyloprim] 100 mg PO Q48HR #30
[2020-06-01] MEDS: MECLIZINE 25 MG TAB PO PRN (09:18)
[2020-06-01] MEDS ORDERED: allopurinoL 100 MG TAB PO SCH (10:00)
[2020-06-01] MEDS ORDERED: carvediloL 25 MG TAB PO SCH (10:00)
[2020-06-01] MEDS ORDERED: CALCITRIOL 0.25 MCG CAP PO SCH (10:00)
[2020-06-01] MEDS ORDERED: amLODIPine 10 MG TAB PO SCH (10:00)
[2020-06-01] MEDS ORDERED: LOSARTAN 25 MG TAB PO SCH (10:00)
[2020-06-01] MEDS ORDERED: APIXABAN 5 MG TAB PO SCH (10:00)
[2020-06-01] MEDS ORDERED: FOLIC ACID 1 MG TAB PO SCH (10:00)
[2020-06-01] MEDS ORDERED: MAGNESIUM OXIDE 400 MG PO SCH (10:00)
[2020-06-01] MEDS ORDERED: MAGNESIUM OXIDE 400 MG TAB PO SCH (10:00)
[2020-06-01] MEDS ORDERED: AMIODARONE 200 MG TAB PO SCH (10:00)
[2020-06-01] MEDS: DIALYSATE PD2 1.5% SOLN 2000 ML IP SCH (10:03)
--- NOTE | 2020-06-01 10:09 | Progress Note ---
Assessment and Plan 1. Nonspecific elevation of cardiac enzymes due to chronic renal failure. 2. Abnormal EKG currently in a sinus rhythm no evidence of atrial flutter. 3. Essential hypertension 4. Chronic end-stage renal disease Plan. Echocardiogram shows normal left ventricular size and function. Stress MPI shows normal myocardial perfusion scan images. No further cardiac work-up indicated. Subjective Date of service: 06/01/20 Interval history: No cardiac symptoms Objective Vital Signs Temp Pulse Resp BP Pulse Ox 06/01/20 09:13 98 H 159/101 06/01/20 09:12 98 H 159/101 06/01/20 07:33 99.0 F 91 H 20 155/96 99 06/01/20 05:00 95 H 06/01/20 04:23 98.9 F 101 H 18 171/107 99 06/01/20 00:10 98.4 F 90 20 168/105 100 05/31/20 22:00 20 05/31/20 21:47 93 H 20 168/108 100 05/31/20 21:00 127 H 05/31/20 19:51 99.5 F 93 H 20 167/98 100 05/31/20 15:40 109 H 158/106 100 05/31/20 15:37 95 H 169/107 100 05/31/20 13:06 96 H - Physical Examination HEENT: Positive: PERRL Neck: Positive: neck supple. Negative: JVD/HJR, Masses Cardiac: Positive: Regular Rate, S1/S2, S4, PMI, Laterally Displaced Lungs: Positive: clear to auscultation, No Wheeze, Rales, Rhonchi Neuro: Positive: Grossly Intact Abdomen: Positive: Soft Skin: Positive: Clear Extremities: Absent: edema - Labs and Meds Comprehensive Metabolic Panel 06/01/20 Range/Units 05:20 Sodium 140 (137-145) mmol/L Potassium 3.4 L (3.6-5.0) mmol/L Chloride 105.1 (98-107) mmol/L Carbon Dioxide 23 (22-30) mmol/L BUN 24 H (9-20) mg/dL Creatinine 5.1 H (0.8-1.3) mg/dL Glucose 106 H (75-100) mg/dL Calcium 7.3 L (8.4-10.2) mg/dL
--- NOTE | 2020-06-01 12:06 | Progress Note ---
Assessment and Plan Impression: * End stage renal disease on peritoneal dialysis * Hx of catheter associated peritonitis --PD effluent: WBC 35; no organisms on gram stain * Anemia secondary to ESRD * Secondary hyperparathryoidism Plan: * Continue CAPD - 1.5% dextrose, fill volume 2L, dwell time 4hours, 4 exchanges per day * Cardiology work up/recommendations reviewed - "Echocardiogram shows normal left ventricular size and function. Stress MPI shows normal myocardial perfusion scan images. No further cardiac work-up indicated" * Renal diet * Dose medications for renal function * Epogen 29595 units x 1 dose * Stable for d/c from a nephrology standpoint * Continue follow up with Dr. Young upon discharge. Patient to arrange transfer to [facility] once permanently relocated. Office information provided to patient. Subjective Date of service: 06/01/20 Interval history: Patient has no complaints today. He reports dizziness has improved. Objective - Vital Signs Vital signs: Vital Signs - 12hr 06/01/20 06/01/20 06/01/20 00:10 04:23 05:00 Temperature 98.4 F 98.9 F Pulse Rate 90 101 H 95 H Pulse Rate [ Apical] Pulse Rate [ Left Radial] Pulse Rate [ Right Radial] Respiratory 20 18 Rate Blood Pressure 168/105 171/107 O2 Sat by Pulse 100 99 Oximetry 06/01/20 06/01/20 06/01/20 07:33 09:12 09:13 Temperature 99.0 F Pulse Rate 91 H 98 H 98 H Pulse Rate [ Apical] Pulse Rate [ Left Radial] Pulse Rate [ Right Radial] Respiratory 20 Rate Blood Pressure 155/96 159/101 159/101 O2 Sat by Pulse 99 Oximetry 06/01/20 10:00 Temperature Pulse Rate Pulse Rate [ 101 H Apical] Pulse Rate [ 101 H Left Radial] Pulse Rate [ 101 H Right Radial] Respiratory 20 Rate Blood Pressure O2 Sat by Pulse 99 Oximetry - General Appearance General appearance: well-developed, well-nourished EENT: ATNC Neck: no JVD Respiratory: Present: Clear to Ascultation Cardiology: regular, S1S2 Gastrointestinal: normal, no tenderness, no distended Integumentary: no rash, warm and dry Psychiatric: cooperative - Lab 05/31/20 04:43 06/01/20 05:20 Most recent lab results Calcium 7.3 mg/dL (8.4-10.2) L 06/01/20 05:20 Magnesium 1.20 mg/dL (1.7-2.3) L 05/30/20 18:01 Medications & Allergies - Medications Allergies/Adverse Reactions: Allergies No Known Allergies Allergy (Verified 05/30/20 16:30) Home Medications: Home Medications Medication Instructions Recorded Confirmed Last Taken Type Amiodarone [Cordarone 200 MG TAB] 200 mg PO BID #60 06/01/20 Unknown Rx Apixaban [Eliquis] 5 mg PO BID #60 06/01/20 Unknown Rx Aspirin EC [Halfprin EC] 81 mg PO QHS tablet 06/01/20 Unknown Rx Folic Acid [Folvite] 1 mg PO QDAY #30 06/01/20 Unknown Rx Losartan [Cozaar] 25 mg PO QDAY #60 06/01/20 Unknown Rx Magnesium Hydroxide [Milk of 30 ml PO Q4H PRN oral.liqd 06/01/20 Unknown Rx Magnesia] Magnesium Oxide [Mag-Ox] 400 mg PO QDAY tablet 06/01/20 Unknown Rx Magnesium Oxide [Magnesium] 400 mg PO DAILY 06/01/20 06/01/20 Unknown History Meclizine [Antivert] 25 mg PO Q8H PRN #30 tablet 06/01/20 Unknown Rx Niacin ER [Niaspan ER] 1,000 mg PO QHS tablet 06/01/20 Unknown Rx Nitroglycerin [Nitrostat] 0.4 mg SL Q5M PRN tablet 06/01/20 Unknown Rx allopurinoL [Zyloprim] 100 mg PO Q48HR #30 06/01/20 Unknown Rx amLODIPine 10 mg PO DAILY #30 06/01/20 Unknown Rx calcitrioL [Rocaltrol] 0.25 mcg PO DAILY #30 cap 06/01/20 Unknown Rx carvediloL [Coreg] 25 mg PO BID #60 06/01/20 Unknown Rx Active Medications: Generic Name Dose Route Start Last Admin Trade Name Freq PRN Reason Stop Dose Admin Acetaminophen 650 mg 05/30/20 23:55 06/01/20 11:35 Tylenol PO 650 mg Q4H PRN Administration Pain MILD(1-3)/Fever >100.5/GARCIA Allopurinol 100 mg 06/01/20 10:00 06/01/20 09:12 Zyloprim PO Not Given Q48HR GISELLE Amiodarone HCl 200 mg 06/01/20 10:00 06/01/20 09:12 Cordarone PO 200 mg BID GISELLE Administration Amlodipine Besylate 10 mg 06/01/20 10:00 06/01/20 09:13 Amlodipine PO 10 mg DAILY GISELLE Administration Apixaban 5 mg 06/01/20 10:00 06/01/20 09:13 Eliquis PO 5 mg BID GISELLE Administration Protocol Aspirin 81 mg 05/31/20 22:00 05/31/20 21:28 Halfprin Ec PO 81 mg QHS [facility] Administration Calcitriol 0.25 mcg 06/01/20 10:00 06/01/20 09:14 Rocaltrol PO 0.25 mcg DAILY GISELLE Administration Carvedilol 25 mg 06/01/20 10:00 06/01/20 09:13 Coreg PO 25 mg BID GISELLE Administration Folic Acid 1 mg 06/01/20 10:00 06/01/20 09:12 Folvite PO 1 mg QDAY [facility] Administration Labetalol HCl 10 mg 05/31/20 00:14 06/01/20 04:47 Labetalol IV 10 mg Q6H PRN Administration HYPERTENSION Losartan Potassium 25 mg 06/01/20 10:00 06/01/20 09:12 Cozaar PO 25 mg QDAY [facility] Administration Magnesium Hydroxide 30 ml 05/30/20 23:55 Milk Of Magnesia PO Q4H PRN Constipation Magnesium Oxide 400 mg 06/01/20 10:00 06/01/20 09:14 Mag-Ox PO 400 mg QDAY [facility] Administration Meclizine HCl 25 mg 05/31/20 14:03 06/01/20 09:18 Antivert PO 25 mg Q8H PRN Administration Vertigo Morphine Sulfate 2 mg 05/30/20 23:55 06/01/20 01:26 Morphine IV 2 mg Q4H PRN Administration Pain, Moderate (4-6) Niacin 1,000 mg 05/31/20 22:00 05/31/20 22:02 Niaspan Er PO 1,000 mg QHS GISELLE Administration Nitroglycerin 0.4 mg 05/30/20 23:55 Nitrostat SL Q5M PRN Chest Pain Ondansetron HCl 4 mg 05/30/20 23:55 Zofran IV Q8H PRN Nausea And Vomiting Peritoneal Dialysis Solution 2,000 ml 05/31/20 14:00 06/01/20 10:03 Dianeal Pd-2 W/1.5% Dextrose IP 2,000 ml QID GISELLE Administration Sodium Chloride 10 ml 05/31/20 10:00 06/01/20 09:14 Sodium Chloride Flush Syringe 10 Ml IV 10 ml BID GISELLE Administration Sodium Chloride 10 ml 05/30/20 23:55 Sodium Chloride Flush Syringe 10 Ml IV PRN PRN LINE FLUSH Sodium Chloride 10 ml 05/30/20 23:55 Sodium Chloride Flush Syringe 10 Ml IV PRN PRN LINE FLUSH
[2020-06-01 12:25] VITALS: BP 135/88
[2020-06-01] MEDS ORDERED: EPOETIN ALFA 10,000 UNIT/1 ML INJ SUB-Q ONE (13:00)
== END 2020-06-01 16:01 | disposition home or self-care (01) ==
LOC: ED 13:23 → 4A 23:20
PROVIDERS: ADMIT Internal Medicine Geriatric Medicine; ATTEND Hospitalist
DX: I12.0 Hypertensive chronic kidney disease with stage 5 chronic kidney disease or end stage renal disease (principal); N18.6 End stage renal disease; R42 Dizziness and giddiness; R79.89 Other specified abnormal findings of blood chemistry; I48.91 Unspecified atrial fibrillation; E78.1 Pure hyperglyceridemia; N25.81 Secondary hyperparathyroidism of renal origin; D63.1 Anemia in chronic kidney disease; Z99.2 Dependence on renal dialysis; Z79.899 Other long term (current) drug therapy; Z79.82 Long term (current) use of aspirin
CPT/HCPCS: 36415; 70450; 71046; 78452; 80048; 80053; 80061; 81001; 82550; 83735; 84484; 85025; 85610; 87116; 89051; 93005; 93017; 93306; 93880; 96372; 96374; 96375; 96376; 99291; A9502; G0378; J0885; J1644; J2270; J2785